=== PATIENT | male | born 1955 | race Caucasian/White ===

== ENCOUNTER 2019-01-13 13:54 | Emergency (ER) | payer OTHER ==
[~2019-01-13] VITALS: Ht 167.6 cm; Wt 77.6 kg
[~2019-01-13 13:54] MED LIST: PERCOCET 5/3251 TAB PO
== END 2019-01-13 22:35 | disposition home or self-care (01) ==
LOC: ER 13:54
DX: N20.0 Calculus of kidney (principal)